=== PATIENT | male | born 1955 | race Caucasian/White ===

== ENCOUNTER 2022-09-17 05:18 | Observation (INO) ==
--- NOTE | 2022-09-08 15:23 | PAT Medication Instructions ---
Medication Instructions Date of Service September 08, 2022 Home Medications Medication Instructions Recorded Miladys Walker #1 ea 09/08/22 acetaminophen 500 mg tablet (Tylenol Extra Strength) 500 mg PO Q6H PRN ibuprofen 400 mg tablet 400 mg PO Q8H PRN insulin pump syringe 3 mL 09/08/22 [History Confirmed 09/08/22] lisinopril 10 mg tablet 10 mg PO QAM metformin 1,000 mg tablet 1,000 mg PO BID 09/08/22 [History Confirmed 09/08/22] multivitamin 1 tab PO QAM 09/08/22 [History Confirmed 09/08/22] omega-3 fatty acids 2,000 mg PO QAM 09/08/22 [History Confirmed 09/08/22] oxycodone-acetaminophen 5 mg-325 mg tablet (Percocet) 1 tab PO Q8H PRN Pain 09/08/22 [History Confirmed 09/08/22] pyridoxine (vitamin B6) 100 mg tablet 100 mg PO QID PRN kidney stones 09/08/22 [History Confirmed 09/08/22] ASK your surgeon for instructions ibuprofen 400 mg tablet 400 mg PO Q8H PRN Take morning of surgery With a small sip of water, OTHERWISE NOTHING TO EAT OR DRINK AFTER MIDNIGHT: acetaminophen 500 mg tablet (Tylenol Extra Strength) 500 mg PO Q6H PRN(if needed) Take evening before surgery acetaminophen 500 mg tablet (Tylenol Extra Strength) 500 mg PO Q6H PRN(if needed) Insulin Dependent Diabetic Patients * Test your blood sugar the morning of surgery * If Blood Sugar is GREATER THAN 150, take HALF of your regular dose of: * If Blood Sugar is LESS THAN 150, DO NOT TAKE ANY: Other Notes If you have any questions please call us at [phone] or [phone] or [phone] or [phone]
--- NOTE | 2022-09-08 15:42 | PAT Medication Instructions ---
Medication Instructions Date of Service September 08, 2022 Home Medications Medication Instructions Recorded Miladys Yepez #1 ea 09/08/22 acetaminophen 500 mg tablet (Tylenol Extra Strength) 500 mg PO Q6H PRN ibuprofen 400 mg tablet 400 mg PO Q8H PRN insulin regular human 100 unit/mL injection solution (Humulin R Regular U-100 Insulin) 1 sliding scale dose subcut USEASDIRECTD lisinopril 10 mg tablet 10 mg PO QAM metformin 1,000 mg tablet 1,000 mg PO BID multivitamin 1 tab PO QAM omega-3 fatty acids 2,000 mg PO QAM oxycodone-acetaminophen 5 mg-325 mg tablet (Percocet) 1 tab PO Q8H PRN pyridoxine (vitamin B6) 100 mg tablet 100 mg PO QID PRN ASK your surgeon for instructions ibuprofen 400 mg tablet 400 mg PO Q8H PRN ASK your prescriber and surgeon insulin regular human 100 unit/mL injection solution (Humulin R Regular U-100 Insulin) 1 sliding scale dose subcut USEASDIRECTD STOP taking 2 weeks before surgery (or as soon as possible if surgery is within 2 weeks) omega-3 fatty acids 2,000 mg PO QAM DO NOT take the morning of surgery lisinopril 10 mg tablet 10 mg PO QAM metformin 1,000 mg tablet 1,000 mg PO BID multivitamin 1 tab PO QAM pyridoxine (vitamin B6) 100 mg tablet 100 mg PO QID PRN Take morning of surgery With a small sip of water, OTHERWISE NOTHING TO EAT OR DRINK AFTER MIDNIGHT: acetaminophen 500 mg tablet (Tylenol Extra Strength) 500 mg PO Q6H PRN(if needed) oxycodone-acetaminophen 5 mg-325 mg tablet (Percocet) 1 tab PO Q8H PRN(if needed) Take evening before surgery acetaminophen 500 mg tablet (Tylenol Extra Strength) 500 mg PO Q6H PRN(if needed) metformin 1,000 mg tablet 1,000 mg PO BID oxycodone-acetaminophen 5 mg-325 mg tablet (Percocet) 1 tab PO Q8H PRN(if needed) pyridoxine (vitamin B6) 100 mg tablet 100 mg PO QID PRN Other Notes If you have any questions please call us at [phone] or [phone] or [phone] or [phone]
--- NOTE | 2022-09-10 09:03 | Anesthesiology Consultation ---
Date of Service September 10, 2022 Assessment & Plan (1) Encounter for pre-operative examination: - Check BSG AM DOS - COVID screening: Per assessment on 09/10: No known COVID-19 positive contacts or current COVID-19 related symptoms. Travel screen negative. Patient vaccinated. - Outpatient joint assessment: Pt currently scheduled for inpatient pathway. If surgeon requests review for outpatient joint pathway, patient is an acceptable candidate for outpatient joint program pending perioperative course from anesthesia standpoint. Chart Review Chart Review: Acceptable Risk for Surgery and Patient seen in Pre Admission Testing Teaching & Discussion Pre-Anesthesia Teaching/Discussion Notes: Instructed NPO after midnight before surgery,except medications with 15 cc of water. Medication instructions provided according to the PAT guidelines. History Surgery Operation Date: 09/17/22 07:15 Proposed Procedures p Left Total Knee Arthroplasty - Dandre Shetty MD Height/Weight Height: 6 ft Weight: 119.5 kg Allergies Allergy/AdvReac Type Severity Reaction Status Date / Time No Known Allergies Allergy Mild Verified 09/08/22 13:42 Medications Home Medications Medication Instructions Recorded Confirmed Last Taken Wheeled Walker #1 ea 09/08/22 09/08/22 Unknown acetaminophen 500 mg tablet 500 mg PO Q6H PRN Pain 09/08/22 09/08/22 Unknown (Tylenol Extra Strength) ibuprofen 400 mg tablet 400 mg PO Q8H PRN Pain 09/08/22 09/08/22 Unknown insulin pump syringe 3 mL 09/08/22 09/08/22 Unknown insulin regular human 100 unit/mL 1 sliding scale dose subcut 09/08/22 09/08/22 Unknown injection solution (Humulin R USEASDIRECTD Regular U-100 Insulin) lisinopril 10 mg tablet 10 mg PO QAM 09/08/22 09/08/22 Unknown metformin 1,000 mg tablet 1,000 mg PO BID 09/08/22 09/08/22 Unknown multivitamin 1 tab PO QAM 09/08/22 09/08/22 Unknown omega-3 fatty acids 2,000 mg PO QAM 09/08/22 09/08/22 Unknown oxycodone-acetaminophen 5 mg-325 1 tab PO Q8H PRN Pain 09/08/22 09/08/22 Unknown mg tablet (Percocet) pyridoxine (vitamin B6) 100 mg 100 mg PO QID PRN kidney stones 09/08/22 09/08/22 Unknown tablet Past Medical History Medical History Arthritis, hip Degenerative arthritis of knee, bilateral Degenerative disc disease Diabetes mellitus, type 2 Hearing loss in right ear History of kidney stones Hypertension Obesity Osteoarthritis Prostate cancer s/p prostatectomy Skin cancer Forehead > Moh's Sleep apnea Hx, no issues since UPPP Exercise / Class Metabolic Activity II 4-5 Yardwork/Stairs/Walk up hill (one FS (no CP, no SOB)) Past Family History Family History Other No family history of adverse response to anesthesia Past Surgical History Surgical History History of anesthesia reaction "had spinal/general with prostate surgery" and could not walk for 3 days after, patient states he has had a spinal since without issues- no further details "Slow to wake" after UPPP History of bronchoscopy History of colonoscopy History of knee surgery left History of lumbar discectomy x2 L3 microdiscectomy History of Mohs micrographic surgery for skin cancer History of prostatectomy History of sinus surgery x3 History of toe surgery right foot History of umbilical hernia repair x3 History of wisdom tooth extraction Hx of LASIK Status post uvulopalatopharyngoplasty Past Anesthesia History No Family Hx of Anesthesia Complications and Other "Had spinal/general with prostate surgery" and could not walk for 3 days after, patient states he has had a spinal since without issues- no further details "Slow to wake" after UPPP History of PONV No Hx of PONV and Hx of Motion Sickness ("Seasickness") Social History Smoking Status: Former smoker Do You Dip or Chew Tobacco: No Smoking End Date: Quit 50 years ago Hx Alcohol Use: No Hx Substance Use: No substance use type: does not use Review of Systems Patient denies chest pain, shortness of breath, dyspnea on exertion, fever, chills, cough, wheezing, palpitations. Physical Exam Vital Signs VITALS BP 143/87 P 91 TEMP 98.1 SP02 97%RA RESP 18 PHYSICAL Full cervical extension range of motion. Full TMJ range of motion. TMD 4 finger breaths Mallampati Score 1 Dentition: intact, + crown Lungs: clear throughout to auscultation Cardiac: regular rate and rhythm, no murmurs noted Spine: normal Carotid arteries: negative bruit Extremities: no LE edema Thick neck Lab Results Anesthesia Preop Results Results Anesthesia Widget: WBC 6.13 K/ul (4.8-10.8) 09/10/22 Hgb 15.6 g/dl (14.0-18.0) 09/10/22 Hct 43.0 % (42.0-52.0) 09/10/22 Plt 227 K/uL (130-400) 09/10/22 Na 137 mmol/L (136-145) 09/10/22 K 3.9 mmol/L (3.5-5.1) 09/10/22 Cl 104 mmol/L (98-107) 09/10/22 CO2 23 mmol/L (21-32) 09/10/22 BUN 18 mg/dl (6-23) 09/10/22 Creat 0.77 mg/dl (0.6-1.4) 09/10/22 Glucose Level 260 mg/dl (70-99(Fasting)) H 09/10/22 PT 10.9 Seconds (9.0-12.0) 09/10/22 PTT 27.0 Seconds (21.0-31.0) 09/10/22 INR 1.0 (0.9-1.1) 09/10/22 HA1c 6.7 % (4.5-5.6) H 09/10/22 Blood Type O Positive 09/10/22 Antibody Screen NEGATIVE 09/10/22 Testing Laboratory Results Elevated glucose at 260 on preop labs > A1C was 6.7% (EAG 146)* Electrocardiogram Date: 09/10/22 NSR at 95bm. Chest X-Ray Date: 09/10/22 Findings: + NAD COVID-19 Risk Screen Screening Information COVID-19 Screen Date: 09/10/22 Exposure 21 Days Family/Household +COVID Last 21 Days: No Exposure 10 Days Any COVID Exposure Last 10 Days: No Symptoms Last 10 Days Experienced COVID Sx Last 10 Days: No + COVID 0-90 Days COVID + in Last 0-90 Days: No
[2022-09-17] MEDS ORDERED: ceFAZolin 2000MG 2,000 MG/15 ML SYR IV SCH (06:00)
[2022-09-17] MEDS ORDERED: CeleBREX 200 MG CAP PO SCH (06:00)
[2022-09-17] MEDS ORDERED: METOCLOPRAMIDE HCL 10 MG TABLET PO SCH (06:00)
[2022-09-17] MEDS ORDERED: TRANEXAMIC ACID 1,000 MG **IV Intra-op IV SCH (06:00)
[2022-09-17] MEDS ORDERED: LR 60ML/HR IV SCH (06:00)
[2022-09-17] MEDS ORDERED: Scopolamine 1 MG TDSY TD SCH (06:00)
[2022-09-17] MEDS ORDERED: FAMOTIDINE 20 MG TAB PO SCH (06:00)
[2022-09-17] MEDS ORDERED: LR 500ML BOLUS, THEN 15ML/HR IV SCH (06:00)
[2022-09-17] MEDS ORDERED: BUPIVACAINE LIPOSOME/PF 266 MG, BUPIVACAINE/EPINEPHRINE 50 ML, SODIUM CHLORIDE 0.9% PF ... INFIL SCH (06:00)
[2022-09-17] MEDS ORDERED: ACETAMINOPHEN 500 MG TAB PO SCH (06:00)
[2022-09-17] MEDS ORDERED: BUPIVACAINE 0.5 % 5 MG/1 ML PF 10ML VIAL ONE (06:10)
[2022-09-17] MEDS ORDERED: ROPIVACAINE 0.5% 5 MG/ML 30 ML VIAL ONE (06:11)
[2022-09-17] MEDS ORDERED: ONDANSETRON INJ 2 MG/ML 2 ML VIAL ONE (06:34)
[2022-09-17] MEDS ORDERED: MIDAZOLAM HCL 1 MG/ML 2ML VIAL ONE (06:34)
[2022-09-17] MEDS ORDERED: LIDOCAINE 2% 2 ML VIAL/AMP(20MG/ML) INFIL ONE (06:34)
[2022-09-17] MEDS ORDERED: PROPOFOL IV EMULSION 10 MG/ML 20 ML VIAL IV ONE ×3 (06:34→08:54)
[2022-09-17] MEDS ORDERED: ePHEDrine sulfate 50 MG/ML AMP IV PRN (06:42)
[2022-09-17] MEDS ORDERED: ATROPINE SULFATE 0.1 MG/ML 10ML SYR IV PRN (06:42)
[2022-09-17] MEDS ORDERED: fentaNYL citrate PF 100 MCG/2 ML VIAL IV PRN (06:42)
[2022-09-17] MEDS ORDERED: ONDANSETRON INJ 2 MG/ML 2 ML VIAL IV PRN ×2 (06:42→11:08)
--- NOTE | 2022-09-17 07:00 | History & Physical Bridge Note ---
Date of Service September 17, 2022 History & Physical Bridge Note I have examined the patient, reviewed the History & Physical and in the interval since the performance of the History & Physical I have noted the following changes of clinical significance: no changes noted
[2022-09-17] MEDS ORDERED: BUPIVACAINE/EPINEPHRINE 0.25% 1:200,000 30 ML VIAL ONE (07:03)
[2022-09-17] MEDS ORDERED: BUPIVACAINE LIPOSOME 1.3% 266 MG/20 ML VIAL ONE (07:03)
[2022-09-17] MEDS ORDERED: SODIUM CHLORIDE 0.9% PF 50 ML VIAL ONE (07:03)
[2022-09-17] MEDS ORDERED: DEXAMETHASONE SOD INJ 4 MG/ML VIAL ONE (07:13)
[2022-09-17] MEDS ORDERED: KETAMINE 50 MG/5 ML SYRINGE ONE (07:16)
--- NOTE | 2022-09-17 09:25 | Operative Report ---
PG Post Operative Report Pre & Post Diagnosis Operation Date: 09/17/22 07:00 Pre-Op Diagnosis: Left Total Knee Arthroplasty Post-Op Diagnosis: Left Total Knee Arthroplasty I identified the patient and participated in the time-out.: Yes Procedure Operation Date: 09/17/22 07:00 Actual Procedures p Left Total Knee Arthroplasty(Left) - Dandre Shetty MD Surgeon Dandre Shetty MD [employer] Client [employer] Consultant Parish Young PA-C Estimated Blood Loss 50 Findings Consistent with Post-Op Diagnosis Operative findings real advanced left knee tricompartment DJD. He had extensive grade 4 [id number] disease in all 3 compartments with varus deformity to his knee and about 15 degree flexion contracture. Moderate-sized joint effusion. Specimens Left knee sent for pathology Anesthesia Type Spinal MAC Complications none Disposition Accompanied Patient To Recovery: No Indications The patient is an active RN nurse works at the [employer] whose had a long history of bilateral knee pain discomfort that is gradually gotten worse over time. Is been through extensive conservative treatment which provided minimal relief. X-rays show advanced bilateral knee DJD. The left is more symptomatic than the right. He elected proceed with left total knee arthroplasty. Description of Procedure Operative implants consist of: 1. Biomet Vanguard size 75 left posterior stabilized femoral component. 2. Biomet size 79 tibial tray. 3. 10 mm posterior stabilized polyethylene insert. 4. 34 x 8 and half all poly patella. The patient was taken to the operating, identified, placed on the operating table supine position. All contractors were appropriately padded. IV antibiotics were provided by anesthesia team. A spinal anesthetic and abductor canal block had been provided in the holding area. A left thigh turn was then placed. The left lower extremity was then prepped and draped in usual sterile fashion. The left leg was elevated and exsanguinated with use of an Esmarch and the tourniquet was placed at 300 mmHg. An anterior approach the left knee was then performed through a longitudinal incision centered over the patella. Sharp dissection scalp through subcutaneous tissue down the extensor mechanism. A medial parapatellar arthrotomy incision was made. Some subperiosteal dissection was carried out medially. The fat pad was dissected from Neath patella tendon. The lateral patellofemoral ligament was released. Patella subluxated laterally and the knee was flexed. The osteophytes taken off the posterior aspect the femur. The ACL and PCL were then released from the distal femur and the tibia subluxated anteriorly. The external tibial alignment jig was then placed in the interface the tibia and adjusted 14 mm medially. Proximal tibial cut was made remove about 2 mm of bone from the medial side. The tibia sized to a size 79. Attention drawn the femur. The distal femur was then with a sharp drill. Intramedullary canal was suction. A left 6 degree valgus cutting guide was placed. Distal femoral cutting block was pinned in place. Distal femoral cut was made to take an additional 3 mm of bone off distal femur. The femur was then sized to a size 75. The AP cutting block was pinned parallel to the epicondylar axis which was 4 degrees of external rotation. The anterior cut, anterior chamfer, posterior cut, posterior chamfer cuts were made. The box cutting guide was placed in a just slight lateral and the box cut was made. The knee was flexed. The remnants of the medial and lateral menisci were excised. The osteophytes taken off the posterior aspect of the femur. A trial femoral component was placed. The tibial tray was pinned in maximum external rotation and the drill and stem punch were used to create defect in proximal tibia for the tibial tray. Knee was then trialed and the 10 mm insert fit most appropriately. Attention drawn the patella. The patella was cleaned of all soft tissues. Patella thickness measured 23 mm in thickness was cut down to 14. Was sized to a size 34 patella. The lug holes were drilled for the 34 patella. The lateral osteophyte was removed. Patella button was placed. Knee was taken through range of motion and the patella tracked nicely with no thumbs test. Attention drawn to placing the permanent components. All trial components were removed. Bone plug was placed in the distal femur limit blood loss. A double batch Palacos G cement was mixed. Biomet Vanguard size 75 left posterior stabilized femoral component, size 79 tibial tray, a 10 mm posterior stabilized polyethylene insert, and a 34 x 8 and half all Paller patella then cemented in place. The knee was brought out into full extension till cement hardened. Final cement check was then performed. The pericapsular tissues were injected with total of 100 cc of combination of 20 cc of Exparel, 30 cc normal saline, 50 cc of quarter percent Marcaine with epinephrine. The patient did receive 1 g tranexamic acid. The tourniquet was let down for final tourniquet time 72 minutes. Hemostasis was assured with use electrocautery. The wounds once again irrigated. The extensor mechanism then closed with combination 1 PDS suture and #1 Vicryl suture in a [id number] fashion. Extensor mechanism checked found to be intact. Subcutaneous tissues then closed with 2 Dexon suture in a buried interrupted fashion skin was closed skin diane. Leg was then cleaned and dried and sterile dressing was Xeroform, 4 x 4's, sterile cast padding, Jessee bandage were applied. Patient then transferred to the recovery room in stable condition. Patient tolerated the procedure well and there were no complications. Parish Young, my physician showroom sales assistant, was present for the entire procedure. His assistance was required for proper patient positioning, prepping and draping, surgical exposure, retraction, perform the technical details the operation, placement of the implants, closure of the incision site and placement of sterile bandage. I attest to the content of the Intraoperative Record and any orders documented therein. Any exceptions are noted below.
--- NOTE | 2022-09-17 09:41 | XRay Report ---
LEFT KNEE 2 VIEWS History: Left total knee arthroplasty. Degenerative arthritis. Postop. FINDINGS: The patient is status post a left total knee arthroplasty. The hardware is intact. No fract ure or dislocation. Skin diane are in place. IMPRESSION: Left total knee arthroplasty. No evidence for hardware complication. ACT 112: Negative or not required by law. Electronically signed by: Blade Martínez M.D. 09/17/2022 9:40 AM
[2022-09-17] MEDS ORDERED: NALOXONE HCL 0.4 MG/1 ML VIAL/CARP IV PRN (11:08)
[2022-09-17] MEDS ORDERED: PYRIDOXINE HCL 50 MG TAB PO PRN (11:08)
[2022-09-17] MEDS ORDERED: DEXTROSE 50% 50 ML SYRINGE IV PRN ×2 (11:08→11:45)
[2022-09-17] MEDS ORDERED: PHARMACY GLYCEMIC MGMT CONSULT PRN (11:08)
[2022-09-17] MEDS ORDERED: HYDROmorphone INJ 0.5 MG/0.5 ML SYR IV PRN (11:08)
[2022-09-17] MEDS ORDERED: diphenhydrAMINE Capsule 25 MG CAP PO PRN (11:08)
[2022-09-17] MEDS ORDERED: GLUCOSE 40% GEL 15 GM TUBE PO PRN ×2 (11:08→11:45)
[2022-09-17] MEDS ORDERED: bisacodyL 10 MG SUPP PR PRN (11:08)
[2022-09-17] MEDS ORDERED: GLUCAGON FOR INJ 1 MG VIAL SQ PRN (11:08)
[2022-09-17] MEDS ORDERED: ALUMINUM/MAGNESIUM SUSP 30 ML UDC PO PRN (11:08)
[2022-09-17] MEDS ORDERED: CARBOHYDRATES FOR HYPOGLYCEMIA PO PRN ×2 (11:08→11:45)
[2022-09-17] MEDS ORDERED: oxyCODONE HCL IR 5 MG TAB (IMMEDIATE RELEASE) PO PRN (11:08)
[2022-09-17] MEDS ORDERED: METOCLOPRAMIDE HCL INJ 5 MG/ML 2 ML VIAL IV PRN (11:08)
[2022-09-17] MEDS ORDERED: GLUCOSE 10 TAB/TUBE PO PRN ×2 (11:08→11:45)
[2022-09-17] MEDS ORDERED: MAGNESIUM HYDROXIDE SUSP 30 ML UDC PO PRN (11:08)
[2022-09-17] MEDS ORDERED: LANTUS PER UNIT CHARGE SC ONE (11:45)
[2022-09-17] MEDS ORDERED: GLUCAGON FOR INJ 1 MG VIAL IM PRN (11:45)
--- NOTE | 2022-09-17 11:54 | Pharmacy Report ---
Pharmacy Glycemic Short Note 2 - Date of Service September 17, 2022 - Glycemic Short BSG Results (Last 24 hours): 09/17/22 09/17/22 05:46 09:14 POC Glucose 116 H 147 H OUTPATIENT ANTIDIABETIC REGIMEN: * Metformin 1000mg PO BID * Humulin R - 4-7 units PRN - started when his Blood sugar went into 500s, uses CGM ASSESSMENT: * 67 year old male type 2 diabetic, s/p LTKA, received 1 dose of Dexamethasone 12mg preop. * Discussed how patient uses insulin at home, he started insulin when his blood sugars went into the 500s after receiving steroid injection for his knee. * Will give one time dose of Lantus now and prn tonight and tight CF/CR and overnight checks to prevent steroid induced hyperglycemia. * Will loosen NovoLog parameters as steroids wear off tomorrow. * Hold oral agents, not recommended for inpatient use d/t drug interactions, changing PO intake, and difficulty titrating for acute hyper/hypoglycemia. ADA recommends re-initiating outpatient oral agents 1-2 days prior to discharge if/when appropriate if they were held on admission. PLAN FOR INPATIENT GLYCEMIC CONTROL: * Hold outpatient oral diabetes medications * Basal insulin * Lantus 30 units SQ x 1 now, then 15 units HS for BSG > 180mg/dl * Bolus insulin * NovoLog per scale ACHS or Q6hrs while NPO, and overnight tonight at 0000, 0400 * Goal Range: Low 110 mg/dL - High 140 mg/dL * Correction Factor: 20 mg/dL/unit * Nutritional / Prandial insulin per carb ratio of 1 unit per 7 grams CHO consumed
--- NOTE | 2022-09-17 11:57 | Anesthesiology Progress Note ---
Date of Service September 17, 2022 Anesthesia Post Procedure Vital Signs Vital Signs: Temp Pulse Pulse Resp BP Pulse Ox O2 Del Method 09/17/22 11:10 98.1 F 83 20 130/68 95 Room Air 09/17/22 10:55 87 17 130/78 93 Room Air 09/17/22 10:20 78 19 120/71 94 Room Air 09/17/22 10:40 97.9 F 93 H 16 150/83 H 96 Room Air 09/17/22 10:30 79 18 129/74 94 Room Air 09/17/22 10:10 79 15 123/73 94 Room Air 09/17/22 10:00 79 14 112/68 97 Room Air 09/17/22 09:50 81 18 113/68 92 Room Air 09/17/22 09:40 84 12 111/66 97 Room Air 09/17/22 09:30 89 14 113/73 95 Room Air 09/17/22 09:20 86 16 108/78 94 Room Air 09/17/22 09:12 99.0 F 90 10 L 119/66 99 Oxymask 09/17/22 05:49 98.6 F 90 20 154/100 H 96 Room Air O2 Flow Rate 09/17/22 11:10 09/17/22 10:55 09/17/22 10:20 09/17/22 10:40 09/17/22 10:30 09/17/22 10:10 09/17/22 10:00 09/17/22 09:50 09/17/22 09:40 09/17/22 09:30 09/17/22 09:20 09/17/22 09:12 6 09/17/22 05:49 Transfer of Care Handoff Completed per policy Notes Mental Status: alert / awake / arousable and participated in evaluation Patient Amnestic to Procedure: Yes Nausea / Vomiting: adequately controlled Pain: adequately controlled Airway Patency, RR, SpO2: stable & adequate BP & HR: stable & adequate Hydration State: stable & adequate Neuraxial Anesthesia: was administered and sensory block is resolving Anesthetic Complications: no major complications apparent and Pt Satisfied with anesthetic care
[2022-09-17] MEDS: INSULIN ASPART PER UNIT CHARGE SC SCH ×3 (12:48→20:52)
[2022-09-17] MEDS: KETOROLAC TROMETHAMINE 15 MG/ML VIAL IV SCH ×2 (12:52→17:58)
[2022-09-17] MEDS: SODIUM CHLORIDE 0.9% 1000ML 1,000 ML IV SCH ×2 (12:52→23:38)
[2022-09-17] MEDS: ACETAMINOPHEN 500 MG TAB PO SCH ×2 (13:02→20:43)
[2022-09-17] MEDS ORDERED: TRANEXAMIC ACID / 0.7% NACL 1,000 MG/100 ML BAG IV SCH (15:15)
[2022-09-17] MEDS: ceFAZolin 2000MG 2,000 MG/15 ML SYR IV SCH ×2 (16:01→23:12)
[2022-09-17] MEDS: Scopolamine CHECK PATCH PLACEMENT SCH (16:37)
[2022-09-17] MEDS: ASPIRIN 81 MG ECTAB PO SCH (20:41)
[2022-09-17] MEDS: DOCUSATE SODIUM 100 MG CAP PO SCH (20:42)
[2022-09-17] MEDS: SENNA 8.6 MG TAB PO SCH (20:42)
[2022-09-17] MEDS ORDERED: LANTUS PER UNIT CHARGE SC SCH (21:00)
[2022-09-17] MEDS ORDERED: SENNA 8.6 MG TAB PO SCH (21:00)
[2022-09-18] MEDS: KETOROLAC TROMETHAMINE 15 MG/ML VIAL IV SCH ×2 (00:08→06:07)
[2022-09-18] MEDS: INSULIN ASPART PER UNIT CHARGE SC SCH ×3 (00:09→08:17)
[2022-09-18] MEDS: Scopolamine CHECK PATCH PLACEMENT SCH ×2 (00:10→08:19)
[2022-09-18 08:03] LABS: Hematocrit (blood only) 35.3 % (42.0-52.0); Mean Corpuscular Hemoglobin 32.3 pg (25.0-34.0); Mean Corpuscular Hgb Conc 36.8 g/dL (32.0-36.0); Mean Corpuscular Volume 87.8 fL (80.0-100.0); Mean Platelet Volume 9.8 fL (9.4-12.4); Platelet Count 198 K/uL (130-400); RDW Coefficient of Variation 12.4 % (11.5-14.5); RDW Standard Deviation 39.7 fL (36.4-46.3); Red Blood Count 4.02 M/uL (4.70-6.10); White Blood Count 11.76 K/ul (4.8-10.8)
[2022-09-18 08:18] LABS: BUN Creatinine Ratio 31.3 (10-20); Calcium 8.4 mg/dl (8.6-10.3); Creatinine Clr Calc Pharmacy 142.5 ml/min; Est GFR (African American) 115.2 ml/min; Est GFR (Non-African American) 99.4 ml/min; Potassium 3.7 mmol/L (3.5-5.1)
[2022-09-18] MEDS: ACETAMINOPHEN 500 MG TAB PO SCH (08:20)
[2022-09-18] MEDS: SENNA 8.6 MG TAB PO SCH (08:21)
[2022-09-18] MEDS: ASPIRIN 81 MG ECTAB PO SCH (08:22)
[2022-09-18] MEDS: DOCUSATE SODIUM 100 MG CAP PO SCH (08:23)
[2022-09-18] MEDS ORDERED: NON-FORMULARY MEDICATION (Multivitamin tablet) PO SCH (09:00)
[2022-09-18] MEDS ORDERED: OMEGA-3 (PURIFIED FISH OIL) 1 GM CAP PO SCH (09:00)
[2022-09-18] MEDS ORDERED: TAMSULOSIN HCL 0.4 MG CAP PO SCH (09:00)
[2022-09-18] MEDS ORDERED: MULTIVITAMIN TAB PO SCH (09:00)
[2022-09-18] MEDS ORDERED: lisinopril 10 MG TAB PO SCH (09:00)
--- NOTE | 2022-09-18 11:40 | Orthopedic Progress Note ---
Date of Service September 18, 2022 Assessment & Plan (1) Status post left knee replacement: 67-year-old gentleman postop day 1 from left knee replacement doing pretty well. Pain is controlled. He is neurologically intact. Hoping to go home. Plan: 1. PT OT. Weight-bear as tolerated left total knee protocol. 2. DVT prophylax include Thiede teds SCDs and aspirin twice a day. 3. Pain control doing well with current pain regimen. 4. Disposition plan to discharge home with some home health today and thank Subjective . 67-year-old gentleman postop day 1 from a left knee replacement. He is doing pretty well. Therapy went well. Pain is controlled. He is hoping to get home. Denies any chest pain or shortness of breath. Not feeling dizzy or lightheaded. Review of Systems All systems reviewed & are unremarkable except as noted in HPI & below. Physical Exam . Examination left leg reveals the dressing clean dry and intact. Leg is well aligned he can do a straight leg raise. Can dorsiflex and plantarflex his foot appropriately. He is neurologically intact. Respiratory normal respiratory effort, lungs clear to auscultation Cardiovascular RRR, no murmur, no edema Gastrointestinal (Abdomen) normal bowel sounds, soft, nontender, no hepatosplenomegaly Results & Data Results & Data Laboratory Results . Diagnostic Findings . Hemoglobin is 13.0. Hematocrit is 35.3. Electrolytes are stable. PG Care Time/CCT Total # of Minutes Spent Total Time Spent with Patient: Total time spent is greater than 50% in coordination of care (as documented) at patient's floor/unit and/or counseling patient: Coding Level of Care Code 03058 Post Operative Follow-Up Diagnoses Status post left knee replacement Z96.652
== END 2022-09-18 10:30 | disposition home health service (06) ==
LOC: 3E 05:18 → ASU 05:18